=== PATIENT | female | born 1985 | race Caucasian/White ===

== ENCOUNTER → 2017-08-04 10:20 | Outpatient (CLI) | payer OTHER, SELFPAY ==
--- NOTE | 2017-08-04 | DI.MG.S_ITS ---
BILATERAL DIGITAL DIAGNOSTIC MAMMOGRAM: 08/04/2017 CLINICAL: Bilateral breast pain. Baseline exam. No prior exams were available for comparison. There are scattered fibroglandular elements in both breasts. No significant masses, calcifications, or other findings are seen in either breast. IMPRESSION: NEGATIVE There is no abnormality seen in either breast to correspond with the area of clinical concern, however, clinical followup is recommended. There is no mammographic evidence of malignancy. This exam was interpreted at Station ID: [id number]. NOTE: For mammograms, a report in lay terms will be sent to the patient. Approximately 15% of breast malignancies will not be visualized mammographically. In the management of a palpable breast mass, a negative mammogram must not discourage biopsy of a clinically suspicious lesion. Electronically Signed By: Sawyer jorge/sneha:08/04/2017 11:41:02 letter sent: Clinical Evaluation ACR BI-RADS Category 1: Negative [id number]
--- NOTE | 2017-08-04 | DI.US.S_ITS ---
PROCEDURE: US PELVIC COMPLETE INDICATIONS: CHRONIC FEMALE PELVIC PAIN TECHNIQUE: Real-time scanning was performed of the pelvic organs, with image documentation. Additional endovaginal scanning was necessary due to incomplete visualization of the adnexal and endometrial structures by transabdominal scanning. COMPARISON: None. FINDINGS: Transabdominal scanning: Limited scanning through the kidneys shows no hydronephrosis. No pathologic free abdominal or pelvic fluid. Endovaginal scanning: Uterus: Uterus is normal in size at 7.5 x 3.9 x 5.3 cm. The endometrium measures 5.9 mm in combined thickness. Ovaries: Ovaries normal bilaterally and there is an exophytic simple right ovarian cyst measuring 16 mm. IMPRESSION: No source for pelvic pain identified. Dictated by: Rajinder STALLWORTH Interpreted: Tang Gaytan MD on 08/04/2017 at 14:19 Approved by: Rizwan Gaytan M.D. on 08/07/2017 at 9:23
== END ==
PROVIDERS: PCP Physician Assistant Medical; Visit Provider Physician Assistant
DX: N64.4 Mastodynia (principal); R10.2 Pelvic and perineal pain; G89.29 Other chronic pain
CPT/HCPCS: 76830; 76856; 77066; G0279

== ENCOUNTER 2017-08-19 15:38 | Emergency (ER) | payer OTHER, SELFPAY ==
[2017-08-19 15:50] VITALS: BP 127/85; PULSE 64; RESP 16; TEMP 36.6; O2SAT 100
--- NOTE | 2017-08-19 16:00 | DIET.PN ---
Pt is splashed with urine in rt eye from emptying an indwelling catheter. Washed eyes at eye wash prior to checking into ED
--- NOTE | 2017-08-19 16:34 | ED_ITS ---
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 She flushed this thoroughly for about 15 min. She is not currently having any pain or vision change. She denies any other exposures or complaints. 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 She states that her right eye vision at baseline is a little bit worse than left. Related Data Home Medications Medication Instructions Recorded Confirmed omeprazole 20 mg PO BID #0 03/11/17 ibuprofen 600 mg PO QDAY #0 03/14/17 Previous Rx's Medication Instructions Recorded fluticasone 1 spray INTRANASAL QDAY #16 gm 04/17/16 baclofen 10 mg PO TID PRN #30 tab 05/30/17 naproxen [Naprosyn] 500 mg PO BID #30 tab 05/30/17 Review of Systems <MEAGAN Moss Last Filed: 08/19/17 21:55> Review of Systems All systems reviewed & are unremarkable except as noted in HPI and below Exam <MEAGAN Moss Last Filed: 08/19/17 21:55> Initial Vital Signs Initial Vital Signs: Vital Signs Temperature 97.8 F 08/19/17 15:50 Pulse Rate 64 08/19/17 15:50 Respiratory Rate 16 08/19/17 15:50 Blood Pressure 127/85 H 08/19/17 15:50 Pulse Oximetry 100 08/19/17 15:50 GENERAL APPEARANCE: Patient sitting comfortably, in no distress. HEENT: EOMI, conjunctivae pink, sclera are normal bilaterally without injection. Vision: LUNGS: Clear to auscultation bilaterally. HEART: Rate and rhythm regular without murmur, normal S1 and S2, no S3 or S4. <Aubrey Sharpe DO - Last Filed: 08/20/17 07:13> Initial Vital Signs Initial Vital Signs: Vital Signs Temperature 97.8 F 08/19/17 15:50 Pulse Rate 64 08/19/17 15:50 Respiratory Rate 16 08/19/17 15:50 Blood Pressure 127/85 H 08/19/17 15:50 Pulse Oximetry 100 08/19/17 15:50 Course <Verena Orozco PA-C - Last Filed: 08/19/17 21:55> Vital Signs - 8 hr 08/19/17 15:50 Temperature 97.8 F Pulse Rate 64 Respiratory Rate 16 Blood Pressure 127/85 H Pulse Oximetry 100 <Aubrey Sharpe DO - Last Filed: 08/20/17 07:13> Vital Signs - 8 hr 08/19/17 15:50 Temperature 97.8 F Pulse Rate 64 Respiratory Rate 16 Blood Pressure 127/85 H Pulse Oximetry 100 Discharge Plan Departure Patient Disposition: Home, Self-Care Clinical Impression: Employee exposure to body fluids Discharge Date/Time: 08/19/17 16:45 Interventions: ED Discharge Assessment Last Done: 08/19/17 16:45 Instructions: DI for Accidental Exposure to Body Fluids Activity Restrictions/Additional Instructions: This is a very low risk exposure, no further testing or prophylactic medications are recommended. You can use artificial tears or similar if needed for any irritation. Please see your eye doctor on Monday if you have any irritation. Return here if any acute changes such as pain or vision change. I think you are unlikely to have any problems since you thoroughly flushed the eye. Prescriptions: No Action fluticasone 16 GM spray,suspension 1 spray Intranasal QDAY Qty: 16 RF: 1 omeprazole 20 MG capsule,delayed release(DR/EC) 20 mg PO BID Qty: 0 RF: 0 ibuprofen 200 MG tablet 600 mg PO QDAY Qty: 0 RF: 0 baclofen 10 MG tablet 10 mg PO TID PRNQty: 30 RF: 0 naproxen [Naprosyn] 500 MG tablet 500 mg PO BID Qty: 30 RF: 0 Referrals: Nancy Miguel PA-C [Primary Care Provider] - <Aubrey Sharpe DO - Last Filed: 08/20/17 07:13> Cosign ED Attending Cosisaacature Attestation: I was available for consultation during this patient's emergency department encounter
== END 2017-08-19 16:45 | disposition home or self-care (01) ==
PROVIDERS: Emergency Provider Internal Medicine; PCP Physician Assistant Medical
DX: Z77.21 Contact with and (suspected) exposure to potentially hazardous body fluids (principal)
CPT/HCPCS: 99282; 99283

== ENCOUNTER 2017-12-03 18:43 | Emergency (ER) | payer OTHER, SELFPAY ==
[2017-12-03 18:51] VITALS: BP 119/95; PULSE 71; RESP 18; TEMP 36.7; O2SAT 97
--- NOTE | 2017-12-03 19:06 | ED_ITS ---
HPI - Extremity Problem <ANNEL ReyesBC - Last Filed: 12/03/17 19:49> General Chief complaint: Extremity Problem,Nontraumatic Stated complaint: left knee pain Time Seen by Provider: 12/03/17 18:47 Source: patient Mode of arrival: ambulatory Limitations: no limitations History of Present Illness HPI Narrative: Patient presents with chief complaint of left knee pain for over a week. She denies any specific trauma or incident that led to the pain but states she could have twisted and not known it. she has taken ibuprofen on occasion, last dose this morning. She has not injured this knee before hand. She saw a primary care physician a few days ago for the pain and had an x-ray done. She does not think there is anything wrong with the x-ray but is not sure. She complains of worsening pain, decreased range of motion. She denies any numbness or tingling. She states her pain is improved with rest. She states that her pain is worsened by movement and weight-bearing. Related Data Home Medications Medication Instructions Recorded Confirmed omeprazole 20 mg PO BID #0 03/11/17 10/14/17 ibuprofen 600 mg PO QDAY #0 03/14/17 10/14/17 levothyroxine 175 mcg tablet 175 mcg PO DAILY 10/14/17 10/14/17 meclizine 25 mg tablet 25 mg PO DAILY PRN 10/14/17 10/14/17 ranitidine 150 mg capsule 150 mg PO DAILY 10/14/17 10/14/17 Previous Rx's Medication Instructions Recorded fluticasone 1 spray INTRANASAL QDAY #16 gm 04/17/16 budesonide 32 mcg/actuation nasal 1 spray NASAL BID #5 ml 10/14/17 spray cetirizine 10 mg capsule 10 mg PO DAILY #60 cap 10/14/17 naproxen 500 mg PO BID PRN #30 tab 12/03/17 Allergies Allergy/AdvReac Type Severity Reaction Status Date / Time No Known Drug Allergies Allergy Unverified 10/14/17 11:21 Review of Systems <HUE Reyes - Last Filed: 12/03/17 19:49> Review of Systems GENERAL: Denies chills, fatigue, malaise, fever, sweats. HEENT: Denies sinus pain, ear pain, sore throat, difficulty swallowing, dizziness. RESPIRATORY: Denies dyspnea, cough, wheezing, hemoptysis, sputum. CARDIOVASCULAR: Denies chest pain, palpitations, orthopnea, edema, GASTROINTESTINAL: Denies nausea, vomiting, abdominal pain, diarrhea, constipation, melena. : Denies dysuria, frequency, incontinence, hematuria, urinary retention. MUSCULOSKELETAL: see HPI SKIN: Denies rash, skin lesions, or other NEUROLOGIC: Denies weakness, headache, numbness, change in speech, confusion, seizures, incoordination. PSYCHIATRIC: No concerning psychosocial issues. 12 point review of systems is negative except for those stated above Exam <ZULY Reyes-BC - Last Filed: 12/03/17 19:49> Narrative Exam Narrative: GENERAL: This is a well-nourished, well-developed patient, in No acute distress HEAD: Atraumatic. Normocephalic. No temporal or scalp tenderness. EYES: Pupils equal round and reactive. Extraocular motions intact. No scleral icterus. No injection or drainage. ENT: Nose without bleeding, purulent drainage or septal hematoma. Throat without erythema, tonsillar hypertrophy or exudate. Uvula midline. Airway patent. NECK: Trachea midline. No JVD or lymphadenopathy. Supple, nontender, no meningeal signs. CARDIOVASCULAR: Regular rate and rhythm without murmurs, gallops, or rubs. RESPIRATORY: Clear to auscultation. Breath sounds equal bilaterally. No wheezes , rales, or rhonchi. GASTROINTESTINAL: Abdomen soft, non-tender, nondistended. No hepato-splenomegaly , or palpable masses. No guarding. EXTREMITIES: generalized pain to palpation of left knee. Negative anterior drawer test. Negative posterior drawer test. Pain on valgus test but no instability palpated. Negative varus test. pain on Jessica's BACK: Nontender without deformity or crepitance. No flank tenderness. NEURO: AOx3. SKIN: no erythema, ecchymosis noted left knee. Initial Vital Signs Initial Vital Signs: Vital Signs Temperature 98.0 F 12/03/17 18:51 Pulse Rate 71 12/03/17 18:51 Respiratory Rate 18 12/03/17 18:51 Blood Pressure 119/95 H 12/03/17 18:51 Pulse Oximetry 97 12/03/17 18:51 <Aubrey Sharpe DO - Last Filed: 12/03/17 20:00> Initial Vital Signs Initial Vital Signs: Vital Signs Temperature 98.0 F 12/03/17 18:51 Pulse Rate 71 12/03/17 18:51 Respiratory Rate 18 12/03/17 18:51 Blood Pressure 119/95 H 12/03/17 18:51 Pulse Oximetry 97 12/03/17 18:51 Course <HUE Reyes - Last Filed: 12/03/17 19:49> Additional Information: records [facility] patient's x-ray which was done on 12/01/2017. A three view x-ray of the patient's left knee was done. Overall impression was no fracture dislocation. Findings included normal bones normal joint no effusion no subluxation. Noted to have no soft tissue swelling. Orders Ordered: Discontinued Medications Ketorolac Tromethamine (Toradol) 60 mg IM NOW ONE Stop: 12/03/17 19:05 Last Admin: 12/03/17 19:09 Dose: 60 mg Vital Signs - 8 hr 12/03/17 18:51 Temperature 98.0 F Pulse Rate 71 Respiratory Rate 18 Blood Pressure 119/95 H Pulse Oximetry 97 <Aubrey Sharpe DO - Last Filed: 12/03/17 20:00> Orders Ordered: Discontinued Medications Ketorolac Tromethamine (Toradol) 60 mg IM NOW ONE Stop: 12/03/17 19:05 Last Admin: 12/03/17 19:09 Dose: 60 mg Vital Signs - 8 hr 12/03/17 18:51 Temperature 98.0 F Pulse Rate 71 Respiratory Rate 18 Blood Pressure 119/95 H Pulse Oximetry 97 MDM - Extremity (Nontraumatic) <HUE Reyes - Last Filed: 12/03/17 19:49> MDM Narrative Medical decision making narrative: Patient had a negative x-ray taken 2 days ago at an outside facility. I discussed at length following up with her primary care provider and gave her contact information for Orthopedics. She was treated for her pain with Toradol emergency department. Her knee was wrapped in Dajuan bandage. I discussed rest ice compression elevation and gave her prescription of naproxen. I discussed not taking other NSAIDs with her naproxen. She had no questions or concerns upon discharge. Discharge Plan Departure Patient Disposition: Home Clinical Impression: Acute knee pain Interventions: ED Discharge Assessment Last Done: 12/03/17 19:52 Instructions: How To Perform RICE (Rest, Ice, Compress, Elevate), DI for Knee Pain Activity Restrictions/Additional Instructions: High given the contact information for [facility]. You can follow up with them or your primary care provider given your knee pain. Please use rest ice compression elevation for your knee. I am giving a prescription for naproxen to take twice a day. Please take it with food and do not combine it with any other NSAIDs. You can take Tylenol in addition to the naproxen. Prescriptions: New naproxen 500 mg tablet 500 mg PO BID PRN (Reason: pain) Qty: 30 RF: 0 No Action levothyroxine 175 mcg tablet 175 mcg PO DAILY RF: 0 meclizine [Motion Sickness (meclizine)] 25 mg tablet 25 mg PO DAILY PRNRF: 0 ranitidine HCl 150 mg capsule 150 mg PO DAILY RF: 0 budesonide [Rhinocort Allergy] 32 mcg/actuation spray,non-aerosol 1 spray NASAL BID Qty: 5 RF: 2 cetirizine [All Day Allergy (cetirizine)] 10 mg capsule 10 mg PO DAILY Qty: 60 RF: 0 fluticasone 16 GM spray,suspension 1 spray Intranasal QDAY Qty: 16 RF: 1 omeprazole 20 MG capsule,delayed release(DR/EC) 20 mg PO BID Qty: 0 RF: 0 ibuprofen 200 MG tablet 600 mg PO QDAY Qty: 0 RF: 0 Referrals: [facility] [Outside] Nancy Miguel PA-C [Primary Care Provider] - <Aubrey Sharpe DO - Last Filed: 12/03/17 20:00> [facility] ED Attending Saad Attestation: I was available for consultation during this patient's emergency department encounter
[2017-12-03] MEDS: KETOROLAC 60 MG/2 ML VIAL IM (19:09)
--- NOTE | 2017-12-07 17:49 | PC.NURSE ---
Pt states that she feels the same but has followed up with ortho. pt states that all the staff in the ER are great
== END 2017-12-03 19:52 | disposition home or self-care (01) ==
PROVIDERS: Emergency Provider Nurse Practitioner Family; PCP Physician Assistant Medical
DX: M25.562 Pain in left knee (principal)
CPT/HCPCS: 96372; 99282; 99283; J1885

== ENCOUNTER → 2018-01-30 07:48 | Outpatient (CLI) | payer OTHER, SELFPAY | PROVIDERS: PCP Physician Assistant Medical | DX: Z23 Encounter for immunization (principal) | CPT/HCPCS: 90471; 90686 ==

== ENCOUNTER → 2018-10-15 11:31 | Outpatient (CLI) | payer OTHER, SELFPAY ==
--- NOTE | 2018-10-15 | DI.RAD.S_ITS ---
PROCEDURE: XR CERVICAL SPINE 2V OR 3V INDICATIONS: CERVICAL RADICULOPATHY TECHNIQUE: 3 view(s) of the cervical spine were acquired. COMPARISON: None. FINDINGS: Bones: No fractures or dislocations to the very level. The lateral masses of C1 appear intact on the odontoid view. No suspicious bony lesions. Loss of lordosis which could be related to muscle spasm, rigidity or simply positional. Mild disc degeneration at the C6-C7 level where there also is grade 1 retrolisthesis. Soft tissues: No prevertebral soft tissue swelling. IMPRESSION: Grade 1 retrolisthesis and minimal disc degeneration at the C6-C7 level. Dictated by: Rajinder STALLWORTH Interpreted: Seth Lewis MD on 10/15/2018 at 12:50 Approved by: Seth Lewis M.D. on 10/15/2018 at 15:12
== END ==
PROVIDERS: PCP Physician Assistant Medical; Visit Provider Physician Assistant Medical
DX: M54.12 Radiculopathy, cervical region (principal); M43.12 Spondylolisthesis, cervical region
CPT/HCPCS: 72040

== ENCOUNTER → 2019-02-11 11:14 | Outpatient (CLI) | payer OTHER, SELFPAY | PROVIDERS: PCP Physician Assistant Medical | DX: Z23 Encounter for immunization (principal) | CPT/HCPCS: 90471; 90686 ==

== ENCOUNTER → 2020-01-15 09:43 | Outpatient (CLI) | payer OTHER, SELFPAY ==
--- NOTE | 2020-01-15 09:45 | DI.RAD.S_ITS ---
PROCEDURE: XR HIP W PEL IF DONE RT 2V INDICATIONS: RIGHT HIP PAIN TECHNIQUE: 2 views of the hip were acquired. COMPARISON: [facility], CR, XR ABDOMEN 1 VIEW, 03/21/2017, 15:12. FINDINGS: Bones: No fractures or dislocations. Dysmorphic appearance of the right femoral head where there also is flattening along the gravity dependent portion of the bone. Left hip joint appears normal. The visualized pelvic ring appears intact. Soft tissues: No suspicious soft tissue calcifications or masses. IMPRESSION: Abnormal appearance of the right hip joint suspicious for hip dysplasia. Avascular necrosis cannot be excluded. If indicated, MRI could be performed for further assessment. Dictated by: Rajinder STALLWORTH Interpreted: Arely Soni MD on 01/15/2020 at 10:11 Approved by: Arely Soni M.D. on 01/15/2020 at 11:42
== END ==
PROVIDERS: PCP Physician Assistant Medical; Referring Provider Physician Assistant Medical; Visit Provider Physician Assistant Medical
DX: M25.551 Pain in right hip (principal)
CPT/HCPCS: 73502

== ENCOUNTER → 2020-01-22 18:57 | Outpatient (CLI) | payer OTHER, SELFPAY ==
--- NOTE | 2020-01-22 18:59 | DI.MRI.S_ITS ---
PROCEDURE: MR HIP RT WO CON INDICATIONS: PAIN IN RIGHT HIP TECHNIQUE: Noncontrast coronal T1 spin echo and STIR through the bony pelvis. Coronal and axial T2 fast spin echo with fat saturation, sagittal T1 spin echo, and oblique axial T2 fast spin echo with fat saturation through the hip. COMPARISON: None. FINDINGS: Image quality: Excellent. Bones and joints: Chronic appearing deformity of right femoral head with remodeling at right hip joint and pseudoarthrosis is seen. No marrow edema. No acute fracture or dislocation. Finding is consistent with patient's known history of hip dysplasia. Slight superior migration of femoral shaft in relation to femoral head is noted. There is small amount of joint effusion, no gross intra-articular loose body. The visualized lower lumbar spine appears normally aligned. Tendons and ligaments: There is distal right gluteus medius and minimus tendinosis near greater trochanter without associated muscle atrophy. The nearby proximal iliotibial band also appears intact. The iliopsoas tendon appears intact, without adjacent bursal fluid collections or evidence for impingement syndrome. The origin of the hamstring tendon is intact at the ischial tuberosity, as well as the associated sacrotuberous ligament. The straight and reflected heads of the rectus femoris muscle origin appear intact, as well as the conjoint tendon. The ligamentum teres appears intact where visualized. Labrum and cartilage: Loss of articulating cartilages in right hip joint is seen. Extensive signal abnormality and contour irregularity involving superior and anterior labrum is noted consistent with extensive labral tear. Soft tissues: Visualized muscles demonstrate normal bulk and internal signal. Quadratus femoris muscle demonstrates no internal edema to suggest ischiofemoral impingement. The proximal sciatic neurovascular bundle appears normal adjacent to the hamstring tendons. No free pelvic fluid. Bladder wall thickness is normal. Genitourinary structures and bowel loops appear normal where visualized. IMPRESSION: 1. Chronic deformity of right femoral head and pseudoarthrosis at right hip joint consistent with patient's known history of right hip dysplasia. No fracture or dislocation. 2. Suggestion of extensive superior anterior right hip labral tear. 3. Distal right gluteus medius and minimus tendinosis. No other muscle or tendon signal abnormality. Dictated by: Harry Barlow M.D. on 01/24/2020 at 9:47 Approved by: Harry Barlow M.D. on 01/24/2020 at 10:34
== END ==
PROVIDERS: PCP Physician Assistant Medical; Referring Provider Physician Assistant Medical; Visit Provider Physician Assistant Medical
DX: M25.551 Pain in right hip (principal); Q65.89 Other specified congenital deformities of hip
CPT/HCPCS: 73721

== ENCOUNTER → 2020-06-20 10:49 | Outpatient (ROUT) | payer OTHER, SELFPAY ==
[2020-06-20 11:03] LABS: Add Manual Diff / Slide Review NO; Basophils Absolute Auto 100 /uL (0-100); Basophils Percent Auto 0.7 % (0-2); Eosinophils Absolute Auto 200 /uL (0-450); Eosinophils Percent Auto 1.9 % (2-4); Hematocrit 38.5 % (36-46); Lymphocytes Absolute Auto 1100 /uL (1100-4500); Lymphocytes Percent Auto 11.9 % (25-40); Mean Corpuscular HGB Conc 33.8 % (30-36); Mean Corpuscular Hemoglobin 31.4 PG (26-34); Mean Corpuscular Volume 92.9 fL (80-100); Monocytes Absolute Auto 500 /uL (0-900); Monocytes Percent Auto 5.3 % (3-14); Neutrophils Absolute Auto 7400 /uL (1500-7000); Neutrophils Percent Auto 80.2 % (50-75); Platelet Count 285 X10^3/uL (150-400); Red Blood Cell Count 4.15 X10^6/uL (4.0-5.2); White Blood Cell Count 9.2 X10^3/uL (4.5-11.0)
[2020-06-20 11:17] LABS: Alanine Aminotransferase 40 IU/L (<35); Albumin 4.5 g/dL (3.5-5.0); Albumin Globulin Ratio 1.6 (1.0-2.8); Alkaline Phosphatase 73 U/L (38-126); Aspartate Aminotransferase 44 IU/L (14-36); BUN Creatinine Ratio 18.1 (6-22); Bilirubin Total 0.2 mg/dL (0.2-1.3); Blood Urea Nitrogen 15 mg/dL (7-17); Calcium 9.3 mg/dL (8.4-10.2); Carbon Dioxide 25 mmol/L (22-32); Chloride 103 mmol/L (98-107); Cholesterol 150 mg/dL (140-199); Estimated Glomerular Filt Rate > 60.0 mL/min (>60); Globulin 2.9 g/dL (1.7-4.1); Glucose 79 mg/dL (70-100); HDL Cholesterol 44 mg/dL (40-60); HEMOLYSIS < 15 (0-50); LDL Cholesterol Calculated 85 mg/dL (<100); Potassium 3.8 mmol/L (3.4-5.1); Sodium 137 mmol/L (137-145); Total Protein 7.4 g/dL (6.3-8.2); Triglycerides 104 mg/dL (35-150)
[2020-06-20 12:40] LABS: Vitamin D 25 Hydroxy (D3) 22.3 ng/mL (30.0-100.0)
[2020-06-20 13:55] LABS: Free T4, Direct Thyroxine 0.74 ng/dL (0.78-2.19)
== END ==
PROVIDERS: PCP Physician Assistant Medical; Visit Provider Physician Assistant Medical
DX: R53.83 Other fatigue (principal); E66.9 Obesity, unspecified; R74.8 Abnormal levels of other serum enzymes; E55.9 Vitamin D deficiency, unspecified; E03.9 Hypothyroidism, unspecified
CPT/HCPCS: 80053; 80061; 82306; 84439; 84443; 85025

== ENCOUNTER → 2020-10-05 14:30 | Outpatient (CLI) | payer OTHER, SELFPAY ==
[2020-10-05 16:35] LABS: COVID19 -Nasal RAPID Negative (Negative)
== END ==
PROVIDERS: PCP Physician Assistant Medical; Visit Provider Nurse Practitioner
DX: Z01.812 Encounter for preprocedural laboratory examination (principal); Z20.822 Contact with and (suspected) exposure to COVID-19
CPT/HCPCS: 87635

== ENCOUNTER → 2020-12-22 13:40 | Outpatient (CLI) | payer OTHER, SELFPAY | PROVIDERS: PCP Physician Assistant Medical; Referring Provider Internal Medicine; Visit Provider Internal Medicine | DX: Z23 Encounter for immunization (principal) | CPT/HCPCS: 90471; 90686 ==

== ENCOUNTER → 2021-01-20 09:04 | Outpatient (CLI) | payer OTHER, SELFPAY ==
[2021-01-20 11:31] LABS: COVID19 -Nasal RAPID Negative (Negative)
== END ==
PROVIDERS: PCP Physician Assistant Medical; Visit Provider Nurse Practitioner Family
DX: Z20.822 Contact with and (suspected) exposure to COVID-19 (principal)
CPT/HCPCS: 87635

== ENCOUNTER → 2021-01-22 09:27 | Outpatient (CLI) | payer OTHER, SELFPAY ==
[2021-01-22 11:15] LABS: COVID19 -Nasal RAPID Negative (Negative)
== END ==
PROVIDERS: PCP Physician Assistant Medical; Visit Provider Nurse Practitioner Family
DX: Z20.822 Contact with and (suspected) exposure to COVID-19 (principal)
CPT/HCPCS: 87635

== ENCOUNTER → 2021-03-05 09:35 | Outpatient (CLI) | payer OTHER, SELFPAY ==
[2021-03-05 12:39] LABS: COVID19 -Nasal RAPID Negative (Negative)
== END ==
PROVIDERS: PCP Physician Assistant Medical; Visit Provider Nurse Practitioner Critical Care Medicine
DX: Z20.822 Contact with and (suspected) exposure to COVID-19 (principal); R51.9 Headache, unspecified
CPT/HCPCS: 87635